=== PATIENT | female | born 1950 ===

== ENCOUNTER → 2018-04-24 | Outpatient (CLI) | payer OTHER | END | disposition home or self-care (01) | LOC: SONOGRAMA 11:06 | DX: R10.2 Pelvic and perineal pain (principal) ==

== ENCOUNTER 2019-07-20 14:33 | Outpatient (CLI) | payer OTHER | END 2019-07-20 14:39 | disposition home or self-care (01) | LOC: EKG 14:33 → LAB 14:33 | DX: R03.0 Elevated blood-pressure reading, without diagnosis of hypertension (principal) ==

== ENCOUNTER 2020-08-18 14:02 | Outpatient (CLI) | payer OTHER | END 2020-08-18 14:04 | disposition home or self-care (01) | LOC: RAD 14:02 | DX: M17.12 Unilateral primary osteoarthritis, left knee (principal); M25.562 Pain in left knee; E11.9 Type 2 diabetes mellitus without complications ==

== ENCOUNTER 2021-06-01 08:24 | Outpatient (CLI) | payer OTHER | END 2021-06-01 08:37 | disposition home or self-care (01) | LOC: TOM 08:24 | DX: K74.69 Other cirrhosis of liver (principal); K66.8 Other specified disorders of peritoneum; R18.8 Other ascites; R10.84 Generalized abdominal pain; K80.20 Calculus of gallbladder without cholecystitis without obstruction; K80.80 Other cholelithiasis without obstruction ==

== ENCOUNTER 2021-09-13 07:37 | Outpatient (CLI) | payer OTHER | END 2021-09-13 07:46 | disposition home or self-care (01) | LOC: NUCLEAR 07:37 | PROVIDERS: ATTEND Internal Medicine | DX: C56.2 Malignant neoplasm of left ovary (principal) | CPT/HCPCS: 78816; A9552 ==